=== PATIENT | male | born 1950 | race Caucasian/White ===

== ENCOUNTER 2018-02-28 13:18 | Inpatient (IN) | payer MEDICARE ==
[~2018-02-28] VITALS: Ht 185.4 cm; Wt 117.4 kg
[2018-02-28] VITALS (7 sets, daily range): BP systolic 122–146; BP diastolic 76–97
[~2018-02-28 13:18] MED LIST: CYCL-394 PO; FLUO20CA39 PO; HYDR-569 PO; LORA1TAB PO; ZOLP10TA5 PO; [UNRECOGNIZED DRUG - OTHER]
[2018-02-28] MEDS ORDERED: pantoprazole IV 80 MG in normal saline 100ml IV soln 100 ML IV ONE ×4 (13:40)
[2018-02-28] MEDS ORDERED: PRAV40TA3 PO (13:53)
[2018-02-28] MEDS ORDERED: OMEP-271 PO (13:53)
[2018-02-28] MEDS ORDERED: LOSA50TA37 PO (13:53)
[2018-02-28] MEDS ORDERED: HYDR-3965 PO (13:53)
[2018-02-28] MEDS ORDERED: FLO0.4C PO (13:53)
[2018-02-28] MEDS ORDERED: CHOL10002 PO (13:53)
[2018-02-28 13:57] LABS: BASOPHILS # (AUTO) 0.1 X10'3 (0-0.2); BASOPHILS % (AUTO) 1.4 % (0-1); EOSINOPHILS % (AUTO) 0.4 % (0-6); HEMATOCRIT 40.7 % (42.0-52.0); HEMOGLOBIN 13.9 g/dl (14.0-17.9); LYMPHOCYTES # (AUTO) 2.4 X10'3 (1.1-4.8); MEAN CORPUSCULAR HGB CONC 34.1 % (33.0-36.5); MEAN CORPUSCULAR VOLUME 93.6 FL (78-98); MEAN PLATELET VOLUME 8.5 FL (7.4-10.4); MONOCYTES # (AUTO) 0.9 X10'3 (0-0.9); MONOCYTES % (AUTO) 8.6 % (2-12); NEUTROPHILS # (AUTO) 7.3 X10'3 (1.8-7.7); NEUTROPHILS % (AUTO) 67.6 % (42-75); PLATELET COUNT 250 X10'3 (140-440); RED BLOOD COUNT 4.35 X10'6 (4.70-6.10); RED CELL DISTRIBUTION WIDTH 12.8 % (11.5-14.5); WHITE BLOOD COUNT 10.8 X10'3 (4.5-11.0)
[2018-02-28 14:00] LABS: OCCULT BLOOD STOOL POSITIVE (Neg)
[2018-02-28] MEDS ORDERED: pantoprazole 40MG/NS 100ML BAG 100 ML IV ONE (14:00)
[2018-02-28 14:07] LABS: PARTIAL THROMBOPLASTIN TIME 27 SECONDS (22-32); PROTHROMBIN TIME 10.8 SECONDS (9.0-12.0)
[2018-02-28] MEDS: pantoprazole 40 MG vial IV SCH ×2 (14:07→14:16)
[2018-02-28 14:15] LABS: ALANINE AMINOTRANSFERASE 35 U/L (12-78); ALBUMIN 3.8 G/DL (3.4-5.0); ALBUMIN/GLOBULIN RATIO 1.3 (1.1-1.5); ALKALINE PHOSPHATASE 79 IU/L (46-116); ANION GAP 11 (8-16); ASPARTATE AMINO TRANSFERASE 18 U/L (10-37); BILIRUBIN,TOTAL 1.2 MG/DL (0.1-1.0); BLOOD UREA NITROGEN 30 MG/DL (7-18); BUN/CREATININE RATIO 31.3 (5.4-32.0); CALCIUM 8.3 MG/DL (8.5-10.1); CHLORIDE 105 MMOL/L (99-107); CREATININE 0.96 MG/DL (0.60-1.10); GLUCOSE 117 MG/DL (70-104); POTASSIUM 3.9 MMOL/L (3.5-5.1); SODIUM 140 MMOL/L (135-145); TOTAL CARBON DIOXIDE 23.8 MMOL/L (24-32); TOTAL PROTEIN 6.8 G/DL (6.4-8.2); eGFR 78 ML/MIN
[2018-02-28] MEDS ORDERED: normal saline 1000ML IV soln IVB ONE (14:40)
[2018-02-28] MEDS ORDERED: magnesium 1gm/100ml D5W IVPB 100 ML IV PRN (14:55)
[2018-02-28] MEDS ORDERED: ondansetron/PF 4mg/2ml inj IV PRN (14:55)
[2018-02-28] MEDS ORDERED: magnesium Cl slow-release 64mg tablet PO PRN (14:55)
[2018-02-28] MEDS ORDERED: acetaminophen 325mg tablet PO PRN (14:55)
[2018-02-28] MEDS ORDERED: potassium Cl 20 mEq SR tablet PO PRN ×2 (14:55)
[2018-02-28] MEDS ORDERED: magnesium hydroxide 30ml (MOM) UD suspension PO PRN (14:55)
[2018-02-28] MEDS ORDERED: magnesium 4gm in 100ml NS 100 ML IV PRN (14:55)
[2018-02-28] MEDS ORDERED: mag hydrox/Alum hydrox/simeth 30ml oral suspension PO PRN (14:55)
[2018-02-28] MEDS ORDERED: potassium Cl 40MEQ/NS 500ml 500 ML IV PRN ×2 (14:55)
[2018-02-28] MEDS ORDERED: pantoprazole 40mg Tablet.DR PO SCH (15:05)
[2018-02-28] MEDS ORDERED: LIDOcaine Viscous 15ml cup ONE (15:21)
[2018-02-28] MEDS ORDERED: fentaNYL/PF 50MCG/1 ML 2ML syringe ONE (15:21)
[2018-02-28] MEDS ORDERED: MIDAZolam 5mg/5ml vial ONE (15:21)
[2018-02-28] MEDS: normal saline 1000ml 1,000 ML IV SCH (16:54)
[2018-02-28] MEDS: pantoprazole 40MG/NS 100ML BAG 100 ML IV SCH ×2 (18:36→23:40)
[2018-02-28] MEDS: HYDROcodone/acetaminophen 5mg/325mg tablet PO SCH (19:09)
[2018-02-28] MEDS: pravastatin 40mg tablet PO SCH (21:00)
[2018-02-28] MEDS: zolpidem 5mg tablet PO PRN (22:35)
[2018-03-01 00:04] VITALS: BP 132/82
[2018-03-01] MEDS: normal saline 1000ml 1,000 ML IV SCH ×4 (01:27→18:34)
[2018-03-01 04:59] LABS: BASOPHILS % (AUTO) 0.4 % (0-1); EOSINOPHILS # (AUTO) 0.1 X10'3 (0-0.9); EOSINOPHILS % (AUTO) 1.4 % (0-6); HEMATOCRIT 34.4 % (42.0-52.0); HEMOGLOBIN 11.5 g/dl (14.0-17.9); LYMPHOCYTES # (AUTO) 2.5 X10'3 (1.1-4.8); MEAN CORPUSCULAR HEMOGLOBIN 31.2 PG (27.0-31.0); MEAN CORPUSCULAR HGB CONC 33.5 % (33.0-36.5); MEAN CORPUSCULAR VOLUME 93.2 FL (78-98); MEAN PLATELET VOLUME 8.4 FL (7.4-10.4); MONOCYTES # (AUTO) 0.5 X10'3 (0-0.9); MONOCYTES % (AUTO) 7.2 % (2-12); PLATELET COUNT 233 X10'3 (140-440); RED BLOOD COUNT 3.69 X10'6 (4.70-6.10); RED CELL DISTRIBUTION WIDTH 13.1 % (11.5-14.5); WHITE BLOOD COUNT 7.2 X10'3 (4.5-11.0)
[2018-03-01] MEDS: pantoprazole 40MG/NS 100ML BAG 100 ML IV SCH ×5 (04:59→21:45)
[2018-03-01 05:21] LABS: ALANINE AMINOTRANSFERASE 27 U/L (12-78); ALBUMIN 3.3 G/DL (3.4-5.0); ALBUMIN/GLOBULIN RATIO 1.2 (1.1-1.5); ALKALINE PHOSPHATASE 68 IU/L (46-116); ANION GAP 6 (8-16); ASPARTATE AMINO TRANSFERASE 15 U/L (10-37); BLOOD UREA NITROGEN 24 MG/DL (7-18); BUN/CREATININE RATIO 24.7 (5.4-32.0); CALCIUM 7.9 MG/DL (8.5-10.1); CHLORIDE 109 MMOL/L (99-107); CREATININE 0.97 MG/DL (0.60-1.10); GLUCOSE 97 MG/DL (70-104); POTASSIUM 3.9 MMOL/L (3.5-5.1); SODIUM 143 MMOL/L (135-145); TOTAL CARBON DIOXIDE 27.7 MMOL/L (24-32); eGFR 77 ML/MIN
[2018-03-01] MEDS: K and/or MAG REPLACEMENT MC SCH (06:56)
[2018-03-01 07:05] VITALS: BP 144/88
[2018-03-01] MEDS: losartan 50mg tablet PO SCH (07:24)
[2018-03-01] MEDS: vitamin D (cholecalciferol) 1,000 unit tablet PO SCH (07:24)
[2018-03-01] MEDS: HYDROcodone/acetaminophen 5mg/325mg tablet PO SCH ×2 (07:25→20:17)
[2018-03-01] MEDS: tamsulosin 0.4mg capsule PO SCH (07:25)
[2018-03-01 10:55] VITALS: BP 137/78
[2018-03-01 11:09] LABS: BASOPHILS % (AUTO) 0.7 % (0-1); EOSINOPHILS # (AUTO) 0.1 X10'3 (0-0.9); EOSINOPHILS % (AUTO) 1.4 % (0-6); HEMATOCRIT 30.8 % (42.0-52.0); HEMOGLOBIN 10.6 g/dl (14.0-17.9); LYMPHOCYTES # (AUTO) 1.7 X10'3 (1.1-4.8); LYMPHOCYTES % (AUTO) 32.1 % (21-51); MEAN CORPUSCULAR HEMOGLOBIN 31.8 PG (27.0-31.0); MEAN CORPUSCULAR HGB CONC 34.3 % (33.0-36.5); MEAN CORPUSCULAR VOLUME 92.7 FL (78-98); MEAN PLATELET VOLUME 7.6 FL (7.4-10.4); MONOCYTES # (AUTO) 0.4 X10'3 (0-0.9); MONOCYTES % (AUTO) 8.2 % (2-12); NEUTROPHILS # (AUTO) 3.1 X10'3 (1.8-7.7); NEUTROPHILS % (AUTO) 57.6 % (42-75); PLATELET COUNT 205 X10'3 (140-440); RED BLOOD COUNT 3.33 X10'6 (4.70-6.10); RED CELL DISTRIBUTION WIDTH 13.3 % (11.5-14.5); WHITE BLOOD COUNT 5.3 X10'3 (4.5-11.0)
[2018-03-01 19:00] VITALS: BP_SYST 120; BP_SYST 129; BP_DIAS 74; BP_DIAS 78
[2018-03-01] MEDS: pravastatin 40mg tablet PO SCH (20:17)
[2018-03-01] MEDS: zolpidem 5mg tablet PO PRN (21:45)
[2018-03-02] VITALS: BP 131/88
[2018-03-02] MEDS: pantoprazole 40MG/NS 100ML BAG 100 ML IV SCH ×2 (03:31→08:47)
[2018-03-02] MEDS: normal saline 1000ml 1,000 ML IV SCH (03:32)
[2018-03-02 05:21] LABS: BASOPHILS % (AUTO) 0.6 % (0-1); EOSINOPHILS # (AUTO) 0.2 X10'3 (0-0.9); EOSINOPHILS % (AUTO) 2.8 % (0-6); HEMATOCRIT 32.4 % (42.0-52.0); HEMOGLOBIN 10.9 g/dl (14.0-17.9); LYMPHOCYTES # (AUTO) 1.9 X10'3 (1.1-4.8); MEAN CORPUSCULAR HEMOGLOBIN 31.6 PG (27.0-31.0); MEAN CORPUSCULAR HGB CONC 33.7 % (33.0-36.5); MEAN CORPUSCULAR VOLUME 93.8 FL (78-98); MEAN PLATELET VOLUME 8.6 FL (7.4-10.4); MONOCYTES # (AUTO) 0.5 X10'3 (0-0.9); MONOCYTES % (AUTO) 7.5 % (2-12); NEUTROPHILS # (AUTO) 4.1 X10'3 (1.8-7.7); NEUTROPHILS % (AUTO) 61.1 % (42-75); PLATELET COUNT 227 X10'3 (140-440); RED BLOOD COUNT 3.46 X10'6 (4.70-6.10); RED CELL DISTRIBUTION WIDTH 13.4 % (11.5-14.5); WHITE BLOOD COUNT 6.7 X10'3 (4.5-11.0)
[2018-03-02 05:50] LABS: ALANINE AMINOTRANSFERASE 34 U/L (12-78); ALBUMIN 3.5 G/DL (3.4-5.0); ALBUMIN/GLOBULIN RATIO 1.3 (1.1-1.5); ALKALINE PHOSPHATASE 68 IU/L (46-116); ANION GAP 6 (8-16); ASPARTATE AMINO TRANSFERASE 24 U/L (10-37); BILIRUBIN,TOTAL 0.9 MG/DL (0.1-1.0); BLOOD UREA NITROGEN 10 MG/DL (7-18); CALCIUM 8.4 MG/DL (8.5-10.1); CHLORIDE 107 MMOL/L (99-107); GLUCOSE 102 MG/DL (70-104); MAGNESIUM 1.9 MG/DL (1.5-2.4); POTASSIUM 3.6 MMOL/L (3.5-5.1); SODIUM 138 MMOL/L (135-145); TOTAL CARBON DIOXIDE 25.2 MMOL/L (24-32); TOTAL PROTEIN 6.3 G/DL (6.4-8.2); eGFR 75 ML/MIN
[2018-03-02] MEDS: K and/or MAG REPLACEMENT MC SCH (08:00)
[2018-03-02] MEDS: vitamin D (cholecalciferol) 1,000 unit tablet PO SCH (08:17)
[2018-03-02] MEDS: losartan 50mg tablet PO SCH (08:18)
[2018-03-02] MEDS: tamsulosin 0.4mg capsule PO SCH (08:18)
[2018-03-02] MEDS: HYDROcodone/acetaminophen 5mg/325mg tablet PO SCH (08:18)
[2018-03-02 08:29] VITALS: BP 158/84
[2018-03-02] MEDS ORDERED: OMEP-271 PO (10:54)
[2018-03-02 12:03] VITALS: BP 159/85
== END 2018-03-02 13:20 | disposition home or self-care (01) | DRG 378 ==
LOC: ER 13:19 → ED HOLD 14:55 → EDBEDREQ 16:09 → SUR 3N 16:35
PROVIDERS: ADMIT Internal Medicine; ATTEND Internal Medicine
PROC: 0DJ08ZZ Inspection of Upper Intestinal Tract, Via Natural or Artificial Opening Endoscopic (ICD-10-PCS; principal; 2018-02-28)
DX: K28.4 Chronic or unspecified gastrojejunal ulcer with hemorrhage (principal); D62 Acute posthemorrhagic anemia; I10 Essential (primary) hypertension; N40.0 Benign prostatic hyperplasia without lower urinary tract symptoms; E78.00 Pure hypercholesterolemia, unspecified; E78.5 Hyperlipidemia, unspecified; G89.29 Other chronic pain; F32.9 Major depressive disorder, single episode, unspecified; F41.9 Anxiety disorder, unspecified; K44.9 Diaphragmatic hernia without obstruction or gangrene; K22.2 Esophageal obstruction; Z98.84 Bariatric surgery status; Z88.0 Allergy status to penicillin; Z79.891 Long term (current) use of opiate analgesic; Z79.899 Other long term (current) drug therapy
CPT/HCPCS: 36415; 80053; 82272; 83735; 85025; 85610; 85730; 86885; 86900; 86901; 87070; 93005; 96365; 96375; 99285; A4620; C9113; G0500; J2250; J3010; J7030

== ENCOUNTER 2019-06-03 08:33 | Outpatient (CLI) | payer MEDICARE ==
[2019-06-03] VITALS (22 sets, daily range): BP systolic 114–165; BP diastolic 68–100
[~2019-06-03 08:33] MED LIST changes: +CHOL10002 PO; -CYCL-394 PO; +FLO0.4C PO; -FLUO20CA39 PO; +HYDR-3965 PO; -HYDR-569 PO; -LORA1TAB PO; +LOSA50TA64 PO; +OMEP-271 PO; +PRAV40TA3 PO; -[UNRECOGNIZED DRUG - OTHER]
== END 2019-06-03 23:59 | disposition home or self-care (01) ==
LOC: CARD DIAG 08:33
PROVIDERS: ATTEND Internal Medicine Cardiovascular Disease
DX: R42 Dizziness and giddiness (principal)
CPT/HCPCS: 93660

== ENCOUNTER 2021-03-30 05:14 | Day surgery (SDC) | payer MEDICARE ==
[2021-03-22 12:02] LABS: BASOPHILS # (AUTO) 0.1 X10'3 (0-0.2); BASOPHILS % (AUTO) 0.8 % (0-1); EOSINOPHILS # (AUTO) 0.1 X10'3 (0-0.9); EOSINOPHILS % (AUTO) 0.8 % (0-6); LYMPHOCYTES # (AUTO) 1.4 X10'3 (1.1-4.8); LYMPHOCYTES % (AUTO) 21.8 % (21-51); MEAN CORPUSCULAR HEMOGLOBIN 23.9 PG (27.0-31.0); MEAN CORPUSCULAR HGB CONC 31.6 g/dL (33.0-36.5); MEAN CORPUSCULAR VOLUME 75.7 FL (78-98); MEAN PLATELET VOLUME 8.5 FL (7.4-10.4); MONOCYTES # (AUTO) 0.5 X10'3 (0-0.9); MONOCYTES % (AUTO) 8.4 % (2-12); NEUTROPHILS # (AUTO) 4.4 X10'3 (1.8-7.7); NEUTROPHILS % (AUTO) 68.2 % (42-75); PRE OP HEMATOCRIT 33.6 % (42.0-52.0); PRE OP PLATELET COUNT 321 X10'3 (140-440); RED BLOOD COUNT 4.43 X10'6 (4.70-6.10); RED CELL DISTRIBUTION WIDTH 18.5 % (11.5-14.5)
[2021-03-22 12:03] LABS: PRE OP HEMOGLOBIN 10.6 g/dL (14.0-17.9)
[2021-03-22 12:15] LABS: ALBUMIN 3.8 G/DL (3.4-5.0); ALKALINE PHOSPHATASE 140 IU/L (46-116); BLOOD UREA NITROGEN 13 MG/DL (7-18); BUN/CREATININE RATIO 14.3 (5.4-32.0); CALCIUM 8.5 MG/DL (8.5-10.1); CHLORIDE 104 MMOL/L (99-107); CREATININE 0.91 MG/DL (0.60-1.10); PRE OP ALT 63 U/L (30-65); PRE OP ANION GAP 9 (8-16); PRE OP AST 50 U/L (10-37); PRE OP BILIRUB, TOTAL 0.8 MG/DL (0.0-1.0); PRE OP GLUCOSE 123 MG/DL (70-104); PRE OP POTASSIUM 4.6 MMOL/L (3.4-5.1); PRE OP SODIUM 140 MMOL/L (135-145); TOTAL PROTEIN 7.5 G/DL (6.4-8.2); eGFR 83 ML/MIN
[2021-03-22 12:19] LABS: CLARITY,URINE CLEAR (Clear); COLOR,URINE YELLOW (Yellow); GLUCOSE, URINE NEGATIVE (Neg); KETONES,URINE NEGATIVE (Neg); LEUKOCYTE ESTERASE ,URINE NEGATIVE (Neg); NITRITES, URINE NEGATIVE (Neg); OCCULT BLOOD,URINE NEGATIVE (Neg); PROTEIN,URINE NEGATIVE (Neg)
[2021-03-22 12:33] LABS: UA COLLECTION TYPE CLN CATCH MIDSTREAM
[2021-03-30] VITALS (10 sets, daily range): BP systolic 109–138; BP diastolic 59–75
[~2021-03-30] VITALS: Ht 185.4 cm; Wt 110.5 kg
[~2021-03-30 05:14] MED LIST changes: -CHOL10002 PO; -HYDR-3965 PO; +SERT-433 PO; +SPIR25TA5 PO; +TRAM50TA2 PO; -ZOLP10TA5 PO; +ringers solution, lacted 1,000 ML IV SCH
[2021-03-30] MEDS ORDERED: famotidine 20mg tablet PO ONE (05:30)
[2021-03-30] MEDS ORDERED: cefazolin/dext.iso 2gm/100ml IV ONE (05:30)
[2021-03-30] MEDS ORDERED: sevoflurane 250ml liquid IH ONE (07:00)
[2021-03-30] MEDS ORDERED: midazolam 1 mg/ML 2ml injection ONE (07:03)
[2021-03-30] MEDS ORDERED: fentaNYL/PF 50MCG/1 ML 2ML syringe ONE ×2 (07:03→08:54)
[2021-03-30] MEDS ORDERED: propofol inj 20 ML IV ONE (07:07)
[2021-03-30] MEDS ORDERED: LIDOcaine 2% (20mg/ml) 5ml vial ONE (07:07)
[2021-03-30] MEDS ORDERED: ROPIVAcaine 0.5% (5mg/ml) 30ml vial ONE ×2 (07:14)
[2021-03-30] MEDS ORDERED: acetaminophen 1,000mg/100ml IV 100 ML IV ONE (07:52)
[2021-03-30] MEDS ORDERED: ePHEDrine 50MG/ML INJ. ONE (08:03)
[2021-03-30] MEDS ORDERED: ondansetron/PF 4mg/2ml inj ONE (08:07)
[2021-03-30] MEDS ORDERED: dexamethasone sod phosphate 4mg/ml inj. ONE (08:07)
[2021-03-30] MEDS ORDERED: bacitracin 15gm ointment TP ONE (08:20)
[2021-03-30] MEDS ORDERED: ondansetron/PF 4mg/2ml inj IV PRN (08:25)
[2021-03-30] MEDS ORDERED: ringers solution, lacted 1,000 ML IV SCH (08:25)
[2021-03-30] MEDS ORDERED: morphine 4 MG/ML inj SYRINge IV PRN (08:25)
[2021-03-30] MEDS ORDERED: morphine 2 MG/ML inj. syringe IV PRN (08:25)
[2021-03-30] MEDS ORDERED: ROPIVAcaine 0.2% (10 MG/5 ML) BOLUS INJECTION POPLITEAL PRN (08:25)
[2021-03-30] MEDS ORDERED: fentaNYL/PF 50MCG/1 ML 2ML syringe IV PRN ×2 (08:25)
[2021-03-30] MEDS ORDERED: ROPIVAcaine 0.2%/PF PUMP/bolus 545 ML POPLITEAL SCH (08:25)
[2021-03-30] MEDS ORDERED: labetalol 20mg/4ml (5mg/ml) syringe IV PRN (08:25)
[2021-03-30] MEDS ORDERED: hydrALAZINE 20mg/ml inj. IV PRN (08:25)
--- NOTE | 2021-03-30 09:40 | NUR ---
Received from [place] via [facility], accompanied by Anesthesiologist DR. ORTIZ and report given by Anesthesiologist. PATIENT WAKING UP, NO S/S OF PAIN, V/S WNL, CSM INTACT, SCD ON, PIV TO RUE, RIGHT FOOT ELEVATED, WITH BOOT IN PLACE, DSR-CDI, NOTED TO HAVE TWO PINS VISIBLE IN RIGHT FOOT, TOES PINK, WARM, +CAP REFILL, NO SENSATION AT PRESENT, ON-Q TUBING PRESENT
--- NOTE | 2021-03-30 11:10 | NUR ---
ALL DISCHARGE CRITERIA HAS BEEN MET. VSS, DENIES PAIN-ON Q ATTACHED AND STARTED AT 2ML/HR, PT EDUCATED RE: USE OF ON-Q PUMP AND CATH REMOVAL-ALL QUESTIONS ANSWERED, BANDAGE TO RIGHT FOOT HAD SOME BLOODY DRAINAGE NOTED-PROVIDED EXTRA 4X4'S AND EDUCATED PT TO KEEP FOOT ELEVATED MUCH POSSIBLE, IF ANY EXCESSIVE BLEEDING, INSTRUCTED TO NOTIFY DR URBINA. PT DENIES PAIN, TOES STILL NUMB BUT GOOD CSM, PINK WARM- BOOT IN PLACE, ABLE TO STAND WITH HEEL. VOIDING AND ABLE TO SAFELY AMBULATE AND TRANSFER SELF. IV TAKEN OUT WITHOUT ANY COMPLICATIONS. ALL DISCHARGE INSTRUCTIONS COVERED WITH PATIENT AND ALL QUESTIONS ANSWERED. PATIENT TAKEN OUT VIA WHEELCHAIR WITH ALL BELONGINGS TO PERSONAL VEHICLE WHERE FAMILY DROVE PATIENT HOME.
== END 2021-03-30 11:10 | disposition home or self-care (01) ==
LOC: PAS 05:14
PROVIDERS: ATTEND Podiatrist Foot & Ankle Surgery
DX: M19.071 Primary osteoarthritis, right ankle and foot (principal); M20.41 Other hammer toe(s) (acquired), right foot; M20.11 Hallux valgus (acquired), right foot; M20.21 Hallux rigidus, right foot; M21.41 Flat foot [pes planus] (acquired), right foot; M19.072 Primary osteoarthritis, left ankle and foot; E66.9 Obesity, unspecified; Z68.33 Body mass index [BMI] 33.0-33.9, adult; I10 Essential (primary) hypertension; N40.0 Benign prostatic hyperplasia without lower urinary tract symptoms; F41.9 Anxiety disorder, unspecified; G89.18 Other acute postprocedural pain; Z20.822 Contact with and (suspected) exposure to COVID-19; Z79.82 Long term (current) use of aspirin; Z79.899 Other long term (current) drug therapy; Z88.0 Allergy status to penicillin; Z87.891 Personal history of nicotine dependence; Z98.890 Other specified postprocedural states; Z90.49 Acquired absence of other specified parts of digestive tract; Z98.84 Bariatric surgery status
CPT/HCPCS: 28285; 28750; 36415; 64445; 64448; 73620; 76000; 76937; 76942; 80053; 81003; 82948; 85025; 93005; A6223; C1713; J0131; J1100; J2001; J2250; J2405; J2704; J2795; J3010; U0003; U0005; Z7506; Z7508; Z7512; A4215; A4618; A6449; A7000; J7120

== ENCOUNTER 2024-02-03 15:48 | Emergency (ER) | payer MEDICARE ==
[~2024-02-03 15:48] MED LIST changes: -ringers solution, lacted 1,000 ML IV SCH
== END 2024-02-03 17:24 | disposition left against medical advice (07) ==
LOC: ER 15:49
DX: M79.673 Pain in unspecified foot (principal); Z53.21 Procedure and treatment not carried out due to patient leaving prior to being seen by health care provider